=== PATIENT | female | born 1990 | race American Indian/Alaskan Native ===

== ENCOUNTER 2017-05-09 18:20 | Emergency (ER) | payer SELFPAY ==
[2017-05-09 19:29] VITALS: BP 154/87
[2017-05-09] MEDS ORDERED: BOOSTRIX IM ONE (22:00)
--- NOTE | 2017-05-09 22:04 | Emergency Department Report ---
- General Chief complaint: Skin/Abscess/Foreign Body Stated complaint: PAINFUL KNOT ON BACK/CONSTANT ITCHING Time Seen by Provider: 05/09/17 20:55 Source: patient Mode of arrival: Ambulatory Limitations: No Limitations - History of Present Illness Initial comments: This is a 26-year-old female nontoxic, well nourished in appearance, no acute signs of distress deficit ED complaining of open abscess to the back region. Patient states she developed the symptoms last week and stated it was draining with purulent drainage and stated it is getting worse. Patient denies any trauma. Denies fever, chills, nausea, vomiting, chest pain, shortness of breath , abdominal pain, numbness, tingling, stiff neck, or headaches. Patient denies any allergies or past medical history. MD complaint: abscess/boil -: Gradual, week(s) (1) Tetanus Up to Date: unsure Location: back Severity: moderate Severity scale (0 -10): 8 Quality: burning, aching Consistency: constant Improves with: none Worsens with: none Context: none Associated symptoms: denies other symptoms Treatments Prior to Arrival: none - Related Data Previous Rx's Medication Instructions Recorded Last Taken Type Clindamycin [Clindamycin CAP] 450 mg PO Q8HR 7 Days 05/09/17 Unknown Rx Ibuprofen [Motrin 600 MG tab] 600 mg PO Q8H PRN #30 tablet 05/09/17 Unknown Rx Allergies Allergy/AdvReac Type Severity Reaction Status Date / Time No Known Allergies Allergy Unverified 05/09/17 19:29 Abscess Boil HPI - HPI Chief Complaint: Skin/Abscess/Foreign Body Stated Complaint: PAINFUL KNOT ON BACK/CONSTANT ITCHING Time Seen by Provider: 05/09/17 20:55 Home Medications: Previous Rx's Medication Instructions Recorded Last Taken Type Clindamycin [Clindamycin CAP] 450 mg PO Q8HR 7 Days 05/09/17 Unknown Rx Ibuprofen [Motrin 600 MG tab] 600 mg PO Q8H PRN #30 tablet 05/09/17 Unknown Rx Allergies/Adverse Reactions: Allergies Allergy/AdvReac Type Severity Reaction Status Date / Time No Known Allergies Allergy Unverified 05/09/17 19:29 ED Review of Systems ROS: Stated complaint: PAINFUL KNOT ON BACK/CONSTANT ITCHING Other details as noted in HPI Constitutional: denies: chills, fever Eyes: denies: eye pain, eye discharge, vision change ENT: denies: ear pain, throat pain Respiratory: denies: cough, shortness of breath, wheezing Cardiovascular: denies: chest pain, palpitations Endocrine: no symptoms reported Gastrointestinal: denies: abdominal pain, nausea, diarrhea Genitourinary: denies: urgency, dysuria, discharge Musculoskeletal: denies: back pain, joint swelling, arthralgia Skin: denies: rash, lesions Neurological: denies: headache, weakness, paresthesias Psychiatric: denies: anxiety, depression Hematological/Lymphatic: denies: easy bleeding, easy bruising ED Past Medical Hx - Past Medical History Previous Medical History?: No - Surgical History Past Surgical History?: No - Social History Smoking Status: Never Smoker Substance Use Type: None - Medications Home Medications: Home Medications Medication Instructions Recorded Confirmed Last Taken Type Clindamycin [Clindamycin CAP] 450 mg PO Q8HR 7 Days 05/09/17 Unknown Rx Ibuprofen [Motrin 600 MG tab] 600 mg PO Q8H PRN #30 tablet 05/09/17 Unknown Rx ED Physical Exam - General Limitations: No Limitations General appearance: alert, in no apparent distress - Head Head exam: Present: atraumatic, normocephalic - Eye Eye exam: Present: normal appearance, PERRL, EOMI. Absent: scleral icterus, conjunctival injection, nystagmus, periorbital swelling, periorbital tenderness Pupils: Present: normal accommodation - ENT ENT exam: Present: normal exam, normal orophraynx, mucous membranes moist, TM's normal bilaterally, normal external ear exam - Neck Neck exam: Present: normal inspection, full ROM. Absent: tenderness, meningismus, lymphadenopathy, thyromegaly - Respiratory Respiratory exam: Present: normal lung sounds bilaterally. Absent: respiratory distress, wheezes, rales, rhonchi, stridor, chest wall tenderness, accessory muscle use, decreased breath sounds, prolonged expiratory - Cardiovascular Cardiovascular Exam: Present: regular rate, normal rhythm, normal heart sounds. Absent: bradycardia, tachycardia, irregular rhythm, systolic murmur, diastolic murmur, rubs, gallop - GI/Abdominal GI/Abdominal exam: Present: soft, normal bowel sounds. Absent: distended, tenderness, guarding, rebound, rigid, diminished bowel sounds - Rectal Rectal exam: Present: deferred - Extremities Exam Extremities exam: Present: normal inspection, full ROM, normal capillary refill. Absent: tenderness, pedal edema, joint swelling, calf tenderness - Back Exam Back exam: Present: normal inspection, full ROM, other (2 cm x 2 cm open abscess with purulent drainage. No induration. No fluctuance. Tender to touch. Warm to touch. Erythema.). Absent: tenderness, CVA tenderness (R), CVA tenderness (L), muscle spasm, paraspinal tenderness, vertebral tenderness, rash noted - Neurological Exam Neurological exam: Present: alert, oriented X3, CN II-XII intact, normal gait, reflexes normal - Psychiatric Psychiatric exam: Present: normal affect, normal mood - Skin Skin exam: Present: warm, dry, intact, normal color. Absent: rash ED Course Vital Signs 05/09/17 19:26 Temperature 99.3 F Pulse Rate 64 Respiratory 18 Rate Blood Pressure 154/87 O2 Sat by Pulse 100 Oximetry - Reevaluation(s) Reevaluation #1: 05/09/17 22:02 Patient speaking in full sentences but no signs of distress. ED Medical Decision Making - Medical Decision Making This is a 26-year-old female that presents with cellulitis and open abscess that is draining purulent. Patient was examined myself. Patient is stable. Patient be treated with clindamycin at discharge. A permanent marker has been used to outline the redness. Patient was instructed to follow-up with a primary Up in 3-5 days or symptoms such as increased swelling, increased redness past permanent marker, or worsening symptoms return to emergency room as soon as possible. At time time of discharge, the patient does not seem toxic or ill in appearance. No acute signs of distress noted. Patient agrees to discharge treatment plan of care. No further questions noted by the patient. Critical care attestation.: If time is entered above; I have spent that time in minutes in the direct care of this critically ill patient, excluding procedure time. ED Disposition Clinical Impression: Cellulitis Qualifiers: Site of cellulitis: other site Qualified Code(s): L03.818 - Cellulitis of other sites Disposition: TO HOME OR SELFCARE Is pt being admited?: No Does the pt Need Aspirin: No Condition: Stable Instructions: Clindamycin (By mouth), Ibuprofen (By mouth), Cellulitis (ED) Additional Instructions: Follow-up with a primary Up in 3-5 days or symptoms such as increased swelling, increased redness past permanent marker, or worsening symptoms return to emergency room as soon as possible. Take the full course of antibiotic that was prescribed. Take ibuprofen as prescribed as needed for pain. Prescriptions: Clindamycin [Clindamycin CAP] 450 mg PO Q8HR 7 Days Ibuprofen [Motrin 600 MG tab] 600 mg PO Q8H PRN #30 tablet PRN Reason: Pain Referrals: PRIMARY CAREMD [Primary Care Provider] - 3-5 Days JESUS MILLER MD [Staff Physician] - 3-5 Days [facility] [Outside] - 3-5 Days [facility] [Outside] - 3-5 Days Forms: Work/School Release Form(ED)
== END 2017-05-09 23:02 | disposition home or self-care (01) ==
LOC: ED 18:20
DX: L03.312 Cellulitis of back [any part except buttock and flank] (principal)
CPT/HCPCS: 90471; 90715

== ENCOUNTER 2017-09-25 16:43 | Emergency (ER) | payer SELFPAY ==
[2017-09-25] MEDS ORDERED: XYLOCAINE 1% MPF 5 mL INFILTRATI ONE (20:02)
[2017-09-25] MEDS ORDERED: ROCEPHIN IM ONE (20:02)
[2017-09-25] MEDS ORDERED: DECADRON IV ONE (20:02)
[2017-09-25] MEDS ORDERED: MOTRIN PO ONE (20:07)
--- NOTE | 2017-09-25 20:09 | Emergency Department Report ---
Minor Respiratory (Peds) - HPI Chief Complaint: Sore Throat Stated Complaint: SORE THROAT Time Seen by Provider: 09/25/17 20:02 Duration: 2 Days Pain Location: Throat Pain Severity: Moderate Symptoms: Yes Fever, Yes Sore Throat, Yes Sick Contacts, Yes Able to Tolerate Fluids, Yes Good Urine Output, Yes Active and Alert, No Rhinorrhea, No Ear Pain , No Cough, No Shortness of Breath ED Review of Systems ROS: Stated complaint: TONGUE AND THROAT SWOLLEN Other details as noted in HPI Comment: All other systems reviewed and negative ENT: throat pain. denies: ear pain, dental pain, hearing loss, epistaxis, congestion Pediatric Past Medical History - Chronic Health Problems Hx Asthma: No Hx Diabetes: No Hx HIV: No Hx Renal Disease: No Hx Sickle Cell Disease: No Hx Seizures: No Peds Minor Resp. exam - Exam General: Vital signs noted. No distress. Alert and acting appropriately. Peds HEENT: Pharyngeal Erythema: Yes, Pharyngeal Exudates: No, Moist Mucous Membranes: Yes, Rhinorrhea: No, Conjuctival Injection: No Ear: Neither TM Bulge, Neither TM Erythema, Neither EAC Discharge Peds neck exam: Adenopathy: No, Supple: Yes Peds Lung exam: Good Air Exchange: Yes, Wheezes: No, Stridor: No, Cough: No, Nasal Flaring: No, Retractions: No, Use of Accessory Muscles: No Heart: Yes Regular, No Murmur Peds abdomen: Abdominal Tenderness: No, Peritoneal Signs: No, Normal Bowel Sounds: Yes, Distention: No Peds Skin Exam: Rash: No, Eczema: No Neurologic: Alert and oriented, no deficits. Musculoskeletal: Unremarkable. ED Course Vital Signs 09/25/17 17:36 Temperature 100.3 F H Pulse Rate 110 H Respiratory 18 Rate Blood Pressure 138/96 O2 Sat by Pulse 100 Oximetry - Reevaluation(s) Reevaluation #1: 09/25/17 21:36 Patient to the emergency room today with chief complaint of shortness of breath or fever. She states that she has been like this for 2 days. She also brings with her 10-year-old child sustained. Patient has been taking [id number] Motrin and Tylenol. Patient states it is difficult for her to talk because of emesis. Erythema of the posterior nasopharynx. No abscess. Fever noted. Child same symptomology. No drooling. Patient taking by mouth controlling secretions. No significant past medical or surgical history. No medications at home. No known drug allergies. Medicated here in the emergency room with Decadron. Medicated for fever w motrin. antibiotics started Reevaluation #2: 09/25/17 21:37 On reassessment patient is much improved fevers trending down. Heart rate is trending down. Patient is able to speak much more clear. She states she feels better. Patient will be discharged to home with family. She has been given discharge instructions return instructions and follow-up instructions. ED Medical Decision Making - Medical Decision Making ABC INTACT HERE W CHILD W SAME SORE THROAT AND FEVER - Differential Diagnosis PHARYNGITIS Critical care attestation.: If time is entered above; I have spent that time in minutes in the direct care of this critically ill patient, excluding procedure time. ED Disposition Clinical Impression: Fever, Pharyngitis, Strep pharyngitis Disposition: TO HOME OR SELFCARE Is pt being admited?: No Does the pt Need Aspirin: No Condition: Stable Instructions: Pharyngitis (ED), Fever in Adults (ED) Additional Instructions: REST HYDRATE WELL WITH LIQUIDS MED ORDERED TODAY UNTIL GONE [employer]VANCE DIET TOLERATED IF YOUR KIDS DEVELOP SYMPTOMS THEY SHOULD BE SEEN BY STEEL ENGRAVER RETURN TO ER IF THROAT SWELLS. FOLLOW UP WITH PCP ON WEDNESDAY SEE BELOW Prescriptions: Amoxicillin/Potassium Clav [Augmentin 875-125 Tablet] 1 each PO BID #20 tablet predniSONE [Deltasone] 20 mg PO DAILY #5 tablet Referrals: PRIMARY MD FRANCISCO [Referring] - 3-5 Days PIA DANIELLE MD [Staff Physician] - 3-5 Days Forms: Work/School Release Form(ED) Time of Disposition: 21:29
[2017-09-25 21:49] VITALS: BP 136/87
== END 2017-09-25 22:04 | disposition home or self-care (01) ==
LOC: ED 16:43
DX: J02.0 Streptococcal pharyngitis (principal)
CPT/HCPCS: 87116; 87430; 96372; 96374; 99283; J0696; J1100

== ENCOUNTER 2018-06-28 17:16 | Emergency (ER) | payer SELFPAY ==
--- NOTE | 2018-06-28 21:41 | Emergency Department Report ---
Pediatric URI - HPI Chief Complaint: Upper Respiratory Infection Stated Complaint: RUNNY NOSE/COUGH/PINK EYE Time Seen by Provider: 06/28/18 21:36 Duration: 1 week Pain Location: Other (bilateral eyes and congestion) Severity: Mild Symptoms: Yes Rhinorrhea, Yes Cough, Yes Sick Contacts (classmates), Yes Able to Tolerate Fluids, Yes Good Urine Output, No Sore Throat, No Ear Pain, No Shortness of Breath, No Listless Behavior Other History: This is an 10-year-old -[place] female accompanied by appearance with cough, rhinorrhea, and pink times per one week. Mom states patient was sent home from school with runny eyes and cough. Mom is given patient cold and flu medication with some improvement of symptoms. Patient states call and rhinorrhea improved but does continue to eat much rind. Patient states pinkeye was primarily on the right eye which spread to the left eye over the past 2 days. ED Review of Systems ROS: Stated complaint: RUNNY NOSE/COUGH/PINK EYE Other details as noted in HPI Constitutional: denies: chills, fever Eyes: eye pain (bilateral), eye discharge (bilateral). denies: vision change ENT: congestion. denies: ear pain, throat pain Respiratory: cough. denies: shortness of breath, wheezing Cardiovascular: denies: chest pain, palpitations Gastrointestinal: denies: abdominal pain, nausea, diarrhea Neurological: denies: headache, weakness, paresthesias Psychiatric: denies: anxiety, depression Pediatric Past Medical History - Chronic Health Problems Hx Asthma: No Hx Diabetes: No Hx HIV: No Hx Renal Disease: No Hx Sickle Cell Disease: No Hx Seizures: No ED Peds URI Exam - Exam General: Vital signs noted. No distress. Alert and acting appropriately. HEENT: Yes Moist Mucous Membranes, Yes Rhinorrhea (turbinates mildly congested with clear discharge), Yes Conjuctival Injection (bilaterally), No Pharyngeal Erythema, No Pharyngeal Exudates, No Frontal Tenderness, No Maxillary Tenderness Ear: Neither TM Bulge, Neither TM Erythema, Neither EAC Pain, Neither EAC Discharge, Neither Cerumen Impaction Neck: Yes Supple, No Adenopathy Lungs: Yes Good Air Exchange, No Wheezes, No Ronchi, No Stridor, No Cough, No Labored Respirations, No Retractions, No Use of Accessory Muscles, No Other Abnormal Lung Sounds Heart: Yes Regular, No Murmur Abdomen: Yes Normal Bowel Sounds, No Tenderness, No Peritoneal Signs Skin: No Rash, No Eczema Neurologic: Alert and oriented, no deficits. Musculoskeletal: Unremarkable. ED Course Vital Signs 06/28/18 18:16 Temperature 97.0 F L Pulse Rate 89 Respiratory 18 Rate Blood Pressure 107/48 O2 Sat by Pulse 100 Oximetry ED Medical Decision Making - Medical Decision Making This is a 10-year-old female accompanied by parents, that presents with bilateral pink eyes with mucous discharge for 1 week. Patient is stable and was examined by me. Vitals normal. Physical assessment susceptible of conjunctivitis bilateral. Start erythromycin. Discussed plan with mother and she agreed with plan. Discharged home in stable condition. Follow up with PCP in 24-72 hours. Critical care attestation.: If time is entered above; I have spent that time in minutes in the direct care of this critically ill patient, excluding procedure time. ED Disposition Clinical Impression: Conjunctivitis Qualifiers: Conjunctivitis type: acute Acute conjunctivitis type: bacterial Laterality: bilateral Qualified Code(s): H10.33 - Unspecified acute conjunctivitis, bilateral Allergic rhinitis Qualifiers: Allergic rhinitis trigger: unspecified Allergic rhinitis seasonality: seasonal Qualified Code(s): J30.2 - Other seasonal allergic rhinitis Disposition: DC-01 TO HOME OR SELFCARE Is pt being admited?: No Does the pt Need Aspirin: No Condition: Stable Instructions: Allergic Rhinitis (ED), Conjunctivitis (ED) Additional Instructions: Please wash hands before and apply medication denies. Take medication as prescribed. Pinkeye is very contagious so please wash hands frequently. Don't share any towels or bedding to prevent spread of infection. Follow up with Dairy [facility] Manager in 24-72 hours. Use cool compress to each eye to decrease swelling. Avoid rubbing or touching eyes, because rubbing eyes can cause worsening symptoms. Return to ER if swelling don't improve or difficulty breathing after 2 days of medication. Prescriptions: Erythromycin [Erythromycin Ophth Oint] 10 applic OP QID 7 Days #1 tube Referrals: [facility] [Outside] - 3-5 Days [facility] [Outside] - 3-5 Days [facility] [Provider Group] - 3-5 Days Forms: Work/School Release Form(ED), Accompanied Note Time of Disposition: 21:51 Print Language: GEORGIAN
[2018-06-28 22:18] VITALS: BP 108/66
== END 2018-06-28 22:19 | disposition home or self-care (01) ==
LOC: EDBD → ED 17:16
DX: H10.33 Unspecified acute conjunctivitis, bilateral (principal); J30.2 Other seasonal allergic rhinitis
CPT/HCPCS: 99282